=== PATIENT | male | born 1950 | race Caucasian/White ===

== ENCOUNTER 2018-10-26 06:37 | Day surgery (SDC) | payer MEDICARE, OTHER, SELFPAY ==
--- NOTE | 2018-10-26 | PATH_ITS ---
[facility] Accession Number: [id number] . 01 Material submitted: . PART A: colon - POLYP AT 130 CM PART B: colon - POLYP AT 90 CM PART C: colon - POLYP AT 40 CM PART D: colon - POLYP AT 15 CM . 02 Diagnosis: A. Colon, Polyp at 130 cm, Biopsy: Tubular adenoma. . B. Colon, Polyp at 90 cm, Biopsy: Tubular adenoma. . C. Colon, Polyp at 40 cm, Biopsy: Tubular adenoma. . D. Colon, Polyp at 15 cm, Biopsy: Tubulovillous adenoma. No evidence of malignancy or high-grade dysplasia. [facility]/10/27/2018 . 02 Electronically signed: . Nayely Teresa MD, Pathologist NPI- [id number] . 01 Gross description: . Part A: POLYP AT 130 CM: Received in formalin is 1 fragment(s) of louise, soft tissue measuring 0.3 x 0.2 x 0.2 cm which is entirely submitted and submitted entirely in 1 cassette(s) Part B: POLYP AT 90 CM: Received in formalin are 3 fragment(s) of louise, soft tissue measuring 0.1 x 0.1 x 0.1 cm to 0.2 x 0.2 x 0.2 cm which is entirely submitted and submitted entirely in 1 cassette(s) Part C: POLYP AT 40 CM: Received in formalin are 2 fragment(s) of louise, soft tissue measuring 0.1 x 0.1 x 0.1 cm to 0.3 x 0.2 x 0.2 cm which is entirely submitted and submitted entirely in 1 cassette(s) Part D: POLYP AT 15 CM: Received in formalin are multiple fragment(s) of louise, soft tissue measuring 0.1 x 0.1 x 0.1 cm to 0.2 x 0.2 x 0.2 cm which is entirely submitted and submitted entirely in 1 cassette(s) /[facility] /[facility] . 02 Pathologist provided ICD-10: D12.6 . 02 CPT . 571037, 377534, 241726, [id number] Performed at: [facility] [address] [place] [address], [place], [place] [id number] MD Ilir Salguero MD Phone: [phone] Performed at: [id number] [place], [place] [id number] MD Nayely Teresa MD Phone: [phone]
[2018-10-26 07:34] VITALS: BP 127/74; PULSE 74; RESP 16; TEMP 36.7; O2SAT 97; BMI 34.8
--- NOTE | 2018-10-26 07:38 | PM.PREOP ---
Pre-operative Note Interval Note History & Physical reviewed/Exam performed by Physician: Yes Changes to H&P: No ASA Class (for procedural sedation): II
[2018-10-26] MEDS: SODIUM CHLORIDE 0.9% 1,000 ML 200 ML IV (07:46)
[2018-10-26] MEDS: MIDAZOLAM 5 MG/5 ML VIAL IV (08:10)
[2018-10-26] MEDS: fentaNYL 100 MCG/2 ML INJ IV (08:11)
[2018-10-26] MEDS: fentaNYL 250 MCG/5 ML INJ IV (08:11)
[2018-10-26 08:43] VITALS: BP 112/72; PULSE 65; RESP 16; TEMP 36.2; O2SAT 96
--- NOTE | 2018-10-26 08:46 | PM.OP.ENDO ---
Operative Date/Time/Diagnoses Date of procedure: 10/26/18 Time of procedure: 08:46 Pre-op diagnosis: positive cologaurd test Post-op diagnosis: other (polyp) Procedure & Clinicians Study performed: Colonoscopy Same procedure as scheduled: Yes Indications: 68-year-old male who tested positive with cologaurd. Surgeon: Jaylen Rodriguez Procedure Notes SCOAP/Timeout: Performed Procedure in detail: A digital rectal exam was performed and was negative for masses. The scope was carefully inserted into the rectum and advanced through the colon. The ileocecal valve was reached. The scope was carefully withdrawn. Polyps less than 1 cm in size were identified at 130 cm, 90 cm, 40 cm, 15 cm,. Jumbo forceps were used to take bites of each of these polyps. The sites were found to be hemostatic. The polyp at 40 cm an attempt was made to hot snare the polyp using but we were unable to collect polyp so additional sample was taken here with jumbo forceps. Scope withdrawal time: 29 Sedation minutes: 44 Findings: polyp Specimen(s): other (polyps <1 cm at 130, 90, 40, 15cm) Impression: polyps Recommendations: Will call with biopsy results Disposition: same day surgery
--- NOTE | 2018-10-26 09:00 | SUR.PHASEII ---
0843 arouses easily, very sleepy, declines fluids, to bedside.
[2018-10-26 09:01] VITALS: BP 105/64; PULSE 63; RESP 16; O2SAT 95
--- NOTE | 2018-10-26 09:12 | SUR.PHASEII ---
has returned to waiting room, declines to stay with him while he is sleeping. Resp unlabored, even and regular.
[2018-10-26 09:22] VITALS: BP 117/77; PULSE 72; RESP 12; O2SAT 94
== END 2018-10-26 09:42 | disposition home or self-care (01) ==
PROVIDERS: Visit Provider Surgery
PROC: 0DJD8ZZ Inspection of Lower Intestinal Tract, Via Natural or Artificial Opening Endoscopic (ICD-10-PCS; CPT 45378; principal; 2018-10-26 07:45)
DX: Z12.11 Encounter for screening for malignant neoplasm of colon (principal); D12.6 Benign neoplasm of colon, unspecified; E11.9 Type 2 diabetes mellitus without complications; I10 Essential (primary) hypertension; I25.10 Atherosclerotic heart disease of native coronary artery without angina pectoris; Z79.4 Long term (current) use of insulin; Z95.1 Presence of aortocoronary bypass graft
CPT/HCPCS: 45380; 88305; 99152; 99153; J2250; J3010